=== PATIENT | female | born 1985 | race Caucasian/White ===

== ENCOUNTER 2021-03-15 22:41 | Emergency (ER) | payer OTHER ==
[~2021-03-15] VITALS: Ht 185.4 cm; Wt 137.0 kg
[~2021-03-15 22:41] MED LIST: GABAPENTIN100 MG PO; GABAPENTIN300 MG PO; IBUPROFEN800 MG PO; METHOCARBAMOL500 MG NG; NEXIUM40 MG PO; OXYCODONE HCL5 MG PO; TRAMADOL HCL50 MG PO; VENLAFAXINE H37.5 M1 PO; VENLAFAXINE HCL75 M1 PO
== END 2021-03-16 00:02 | disposition home or self-care (01) ==
LOC: ED 22:41
DX: G43.909 Migraine, unspecified, not intractable, without status migrainosus (principal); Z88.6 Allergy status to analgesic agent; Z79.899 Other long term (current) drug therapy; Z79.891 Long term (current) use of opiate analgesic
CPT/HCPCS: 96374; 96375; 99283-25; J0780; J1100; J1200; J1885; J7030

== ENCOUNTER 2021-08-03 18:24 | Emergency (ER) | payer OTHER ==
[~2021-08-03] VITALS: Ht 185.4 cm; Wt 135.2 kg
--- OUTSIDE RECORDS SUMMARY | 2021-08-03 18:26 | XMS ---
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 PHONE: [phone] Vannessa Zhang Nurse Practitioner: [facility] PHONE: [phone] OLVIN GILMAN Physician Oyster Sorter [facility] PHONE: [phone] Toya has no Care Guidelines for this patient. E.D. VISIT COUNT (12 MO.) 1 [facility] 2 [facility] TOTAL 3 NOTE: Visits indicate total known visits. 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
[2021-08-03] MEDS ORDERED: CYCLOBENZAPRINE10 MG PO (20:35)
[2021-08-04] MEDS ORDERED: PERCOCET 5-3251 EACH PO ×2 (18:27)
== END 2021-08-03 20:54 | disposition home or self-care (01) ==
LOC: ED 18:24
DX: M54.41 Lumbago with sciatica, right side (principal); M54.42 Lumbago with sciatica, left side; K21.9 Gastro-esophageal reflux disease without esophagitis; G43.909 Migraine, unspecified, not intractable, without status migrainosus; Z79.899 Other long term (current) drug therapy; Z79.891 Long term (current) use of opiate analgesic
CPT/HCPCS: 99283

== ENCOUNTER 2021-08-04 13:33 | Emergency (ER) | payer BC, OTHER ==
[~2021-08-04] VITALS: Ht 185.4 cm; Wt 135.2 kg
[~2021-08-04 13:33] MED LIST changes: +CYCLOBENZAPRINE10 MG PO
--- OUTSIDE RECORDS SUMMARY | 2021-08-04 13:38 | XMS ---
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 PHONE: [phone] Vannessa Zhang Nurse Practitioner: [facility] PHONE: [phone] OLVIN GILMAN Physician Mounter [employer] [facility] PHONE: [phone] Toya has no Care Guidelines for this patient. E.D. VISIT COUNT (12 MO.) 1 [facility] 3 [facility] TOTAL 4 NOTE: Visits indicate total known visits. ED/UCC VISIT TRACKING (12 MO.) 08/04/2021 13:36 [facility] TYPE: Emergency COMPLAINT: - PAIN BACK, DOWN BOTH LEGS, LOSS OF BOWLS 08/03/2021 18:24 [facility] TYPE: Emergency COMPLAINT: - WOUND CHECK 03/15/2021 22:42 [facility] TYPE: Emergency COMPLAINT: - HEADACHE DIAGNOSES: - correction (current) use of opiate analgesic - Allergy status to analgesic agent - Headache, unspecified - Other shelter (current) drug therapy - Migraine, unspecified, not intractable, without status migrainosus 08/20/2020 12:14 [facility] [place] TYPE: Emergency DIAGNOSES: - BUG BITE - Mastitis without abscess INPATIENT VISIT TRACKING (12 MO.) No inpatient visits to display in this time frame [email or web address]
[2021-08-04] MEDS ORDERED: PERCOCET 5-3251 EACH PO ×2 (18:27)
== END 2021-08-04 18:40 | disposition home or self-care (01) ==
LOC: ED 13:33
DX: M54.50 Low back pain, unspecified (principal); K21.9 Gastro-esophageal reflux disease without esophagitis; G43.909 Migraine, unspecified, not intractable, without status migrainosus; Z79.899 Other long term (current) drug therapy; Z79.891 Long term (current) use of opiate analgesic
CPT/HCPCS: 72131; 80048; 84703; 85025; 96374; 96375; 96376; 99284-25; J1100; J1170; J2270; J2405